=== PATIENT | female | born 1990 | race Caucasian/White ===

== ENCOUNTER → 2023-12-17 | Outpatient (CLI) | payer BC ==
[2023-12-17 17:47] LABS: BASO # 0.01 K/mm3 (0.02-0.10); EOS # 0.02 K/mm3 (0.04-0.40); EOS % 0.2 % (1.0-5.0); HEMATOCRIT 40.9 % (37.0-47.0); HEMOGLOBIN 13.5 g/dL (12.5-16.0); LYMPH# 2.73 K/mm3 (1.50-4.00); MEAN CELL VOLUME 84 fl (78-100); MEAN CORPUSCULAR HEMOGLOBIN 28 pg (27-31); MEAN CORPUSCULAR HGB CONC 33 g/dL (33-37); NEU # 7.56 K/mm3 (1.40-6.50); PLATELET COUNT 317 K/mm3 (130-400); RED BLOOD COUNT 4.89 M/mm3 (4.10-5.30); RED CELL DISTRIBUTION WIDTH 12.5 % (11.5-14.5)
[2023-12-17 17:53] LABS: ALBUMIN 4.4 g/dL (3.5-5.0)
[2023-12-17 17:54] LABS: CALCIUM 10.7 mg/dL (8.3-10.5)
[2023-12-17 17:56] LABS: TOTAL PROTEIN 8.3 g/dL (6.4-8.3)
[2023-12-17 17:57] LABS: TOTAL BILIRUBIN 0.4 mg/dL (0.2-1.2)
[2023-12-18 20:23] LABS: FOLLICLE STIMULATING HORMONE 4.3 mIU/mL (())
[2023-12-18 20:24] LABS: LUTENIZING HORMONE 2.7 mIU/mL (())
== END ==
LOC: LAB 17:28
PROVIDERS: Nurse Practitioner
DX: Z00.00 Encounter for general adult medical examination without abnormal findings (principal); F41.9 Anxiety disorder, unspecified; R63.5 Abnormal weight gain

== ENCOUNTER → 2024-05-30 | Outpatient (CLI) | payer BC ==
[2024-05-30 09:28] LABS: BASO # 0.01 K/mm3 (0.02-0.10); EOS # 0.03 K/mm3 (0.04-0.40); EOS % 0.3 % (1.0-5.0); HEMATOCRIT 40.6 % (37.0-47.0); HEMOGLOBIN 13.1 g/dL (12.5-16.0); LYMPH# 2.26 K/mm3 (1.50-4.00); MEAN CELL VOLUME 87 fl (78-100); MEAN CORPUSCULAR HEMOGLOBIN 28 pg (27-31); MEAN CORPUSCULAR HGB CONC 32 g/dL (33-37); MEAN PLATELET VOLUME 9.8 fl (7.4-10.4); MONO # 0.52 K/mm3 (0.20-0.80); NEU # 5.92 K/mm3 (1.40-6.50); PLATELET COUNT 287 K/mm3 (130-400); RED BLOOD COUNT 4.69 M/mm3 (4.10-5.30); RED CELL DISTRIBUTION WIDTH 12.3 % (11.5-14.5); WHITE BLOOD COUNT 8.8 K/mm3 (4.8-10.8)
[2024-05-30 09:30] LABS: ALBUMIN 4.2 g/dL (3.5-5.0)
[2024-05-30 09:31] LABS: CALCIUM 9.4 mg/dL (8.3-10.5)
[2024-05-30 09:33] LABS: TOTAL PROTEIN 8.1 g/dL (6.4-8.3)
[2024-05-30 09:34] LABS: TOTAL BILIRUBIN 0.4 mg/dL (0.2-1.2)
== END ==
LOC: LAB 08:42
PROVIDERS: Family Medicine
DX: I10 Essential (primary) hypertension (principal); E78.5 Hyperlipidemia, unspecified